=== PATIENT | female | born 1955 | race Asian ===

== ENCOUNTER 2018-03-10 08:54 | Day surgery (SDC) | payer OTHER ==
[2018-03-10] MEDS ORDERED: MIDAZOLAM 1 MG/ML 2 ML INJ (11:41)
[2018-03-10] MEDS ORDERED: FENTAnyl 50 MCG/ML VIAL (11:41)
== END 2018-03-10 14:57 | disposition home or self-care (01) ==
LOC: GIL 08:54
DX: R19.4 Change in bowel habit (principal); D12.5 Benign neoplasm of sigmoid colon; K64.8 Other hemorrhoids; E11.9 Type 2 diabetes mellitus without complications; I10 Essential (primary) hypertension
CPT/HCPCS: 45380; 82962; 88305